=== PATIENT | female | born 1985 | race Asian ===

== ENCOUNTER 2021-03-23 08:53 | Outpatient (CLI) | payer BC | END 2021-03-23 08:54 | disposition home or self-care (01) | LOC: CSHULT 08:53 | PROVIDERS: ATTEND Otolaryngology Plastic Surgery within the Head & Neck | DX: E04.1 Nontoxic single thyroid nodule (principal) | CPT/HCPCS: 76536 ==

== ENCOUNTER 2022-04-27 15:11 | Outpatient (CLI) | payer BC | END 2022-04-27 15:12 | disposition home or self-care (01) | LOC: CSHULT 15:11 | PROVIDERS: ATTEND Otolaryngology Plastic Surgery within the Head & Neck | DX: E04.9 Nontoxic goiter, unspecified (principal); E04.2 Nontoxic multinodular goiter | CPT/HCPCS: 76536 ==